=== PATIENT | male | born 1980 | race Caucasian/White ===

== ENCOUNTER 2017-07-16 00:16 | Emergency (ER) | payer OTHER ==
[~2017-07-16] VITALS: Ht 175.2 cm; Wt 99.8 kg
[~2017-07-16 00:16] MED LIST: MOTRIN800 MG PO
[2017-07-16] MEDS ORDERED: TRAZODONE50 MG PO (00:26)
[2017-07-16] MEDS ORDERED: NEURONTIN800 MG PO (00:26)
[2017-07-16] MEDS ORDERED: BUSPAR5 MG PO (00:27)
[2017-07-16] MEDS ORDERED: NYSTATIN CREAM15 GM T (00:58)
[2017-07-16 01:10] LABS: BILIRUBIN NEGATIVE (NEGATIVE); BLOOD NEGATIVE (NEGATIVE); CLARITY CLEAR (CLEAR); COLOR YELLOW (YELLOW); GLUCOSE NEGATIVE (NEGATIVE); KETONE TRACE (NEGATIVE); LEUKO ESTERASE NEGATIVE (NEGATIVE); NITRITE NEGATIVE (NEGATIVE); PH 5.5 (5.0-9.0); SPECIFIC GRAVITY >= 1.030 (1.005-1.030); UROBILINOGEN 0.2 E.U./dl (0.2-1.0)
[2017-07-16 01:21] LABS: MUCOUS TRACE
[2017-07-16 01:22] LABS: WBC 0-2 wbc/hpf (0-5)
== END 2017-07-16 02:27 | disposition home or self-care (01) ==
LOC: ED 00:16
PROVIDERS: Physician Assistant
DX: S60.221A Contusion of right hand, initial encounter (principal); L08.9 Local infection of the skin and subcutaneous tissue, unspecified; F17.200 Nicotine dependence, unspecified, uncomplicated; Z79.899 Other long term (current) drug therapy; W22.8XXA Striking against or struck by other objects, initial encounter; Y93.89 Activity, other specified; Y92.89 Other specified places as the place of occurrence of the external cause; Y99.9 Unspecified external cause status

== ENCOUNTER 2023-03-03 13:40 | Emergency (ER) | payer OTHER ==
[~2023-03-03] VITALS: Ht 172.7 cm; Wt 104.3 kg
[~2023-03-03 13:40] MED LIST changes: +BUSPAR5 MG PO; +NEURONTIN800 MG PO; +NYSTATIN CREAM15 GM T; +TRAZODONE50 MG PO
[2023-03-03 14:40] LABS: BASO # 0.1 10*3/uL (0.0-0.1); BASO % 0.7 % (0.0-1.0); EOS # 0.6 10*3/uL (0.0-0.4); EOS % 6.2 % (1.0-4.0); HEMATOCRIT 44.9 % (42.0-52.0); LYMPH % 33.1 % (27.0-41.0); MEAN CELL VOLUME 89.1 fl (80.0-94.0); MEAN CORPUSCULAR HGB CONC 33.6 g/dl (33.0-37.0); MEAN PLATELET VOLUME 9.5 fl (9.6-12.3); MONO # 0.6 10*3/uL (0.1-1.0); MONO % 6.2 % (3.0-9.0); NEUT # 4.9 10*3/uL (2.3-7.9); NEUT % 53.6 % (47.0-73.0); PLATELET COUNT AUTOMATED 307 10*3/uL (130-400); RED BLOOD COUNT 5.04 10*6/uL (4.50-5.90); RED CELL DISTRI WIDTH 12.7 % (0-14.5); WHITE BLOOD COUNT 9.2 10*3/uL (4.8-10.8)
[2023-03-03 15:10] LABS: ALKALINE PHOSPHATASE 100 U/L (46-116); BUN 12 mg/dl (9-23); CHLORIDE 104 mmol/L (98-107); POTASSIUM 3.8 mmol/L (3.4-5.1); SGPT/ALT 78 U/L (10-49); TOTAL PROTEIN 7.4 gm/dL (6.0-8.0)
[2023-03-03] MEDS ORDERED: PREDNISONE50 MG PO (16:36)
[2023-03-03] MEDS ORDERED: ZITHROMAX250 MG PO (16:36)
== END 2023-03-03 16:46 | disposition home or self-care (01) ==
LOC: ED 13:40
PROVIDERS: Internal Medicine
DX: J45.901 Unspecified asthma with (acute) exacerbation (principal); Z20.822 Contact with and (suspected) exposure to COVID-19

== ENCOUNTER 2023-10-05 02:17 | Emergency (ER) | payer OTHER, MEDICAID ==
[~2023-10-05] VITALS: Ht 172.7 cm; Wt 108.9 kg
[~2023-10-05 02:17] MED LIST changes: +PREDNISONE50 MG PO; +ZITHROMAX250 MG PO
[2023-10-05] MEDS ORDERED: APRESOLINE10 MG PO (02:27)
[2023-10-05 02:29] LABS: BASO # 0.1 10*3/uL (0.0-0.1); BASO % 0.6 % (0.0-1.0); EOS # 0.2 10*3/uL (0.0-0.4); EOS % 1.9 % (1.0-4.0); HEMATOCRIT 41.2 % (42.0-52.0); LYMPH # 2.6 10*3/uL (1.3-4.4); LYMPH % 25.9 % (27.0-41.0); MEAN CORPUSCULAR HGB 30.6 pg (27.0-31.0); MONO # 0.7 10*3/uL (0.1-1.0); MONO % 6.7 % (3.0-9.0); NEUT # 6.5 10*3/uL (2.3-7.9); NEUT % 64.7 % (47.0-73.0); PLATELET COUNT AUTOMATED 292 10*3/uL (130-400); RED BLOOD COUNT 4.58 10*6/uL (4.50-5.90); RED CELL DISTRI WIDTH 12.5 % (0-14.5)
[2023-10-05 02:45] LABS: ALKALINE PHOSPHATASE 112 U/L (46-116); BUN 14 mg/dl (9-23); CHLORIDE 104 mmol/L (98-107); POTASSIUM 3.5 mmol/L (3.4-5.1); SGPT/ALT 20 U/L (5-49); TOTAL PROTEIN 8.1 gm/dL (6.0-8.0)
== END 2023-10-05 03:00 | disposition left against medical advice (07) ==
LOC: ED 02:17
PROVIDERS: Internal Medicine
DX: R07.89 Other chest pain (principal); F14.90 Cocaine use, unspecified, uncomplicated; Z53.29 Procedure and treatment not carried out because of patient's decision for other reasons

== ENCOUNTER 2023-10-09 22:37 | Emergency (ER) | payer OTHER, MEDICAID ==
[~2023-10-09 22:37] MED LIST changes: +APRESOLINE10 MG PO
== END 2023-10-09 23:20 | disposition left against medical advice (07) ==
LOC: ED 22:37
DX: R06.02 Shortness of breath (principal); R05.9 Cough, unspecified; Z53.21 Procedure and treatment not carried out due to patient leaving prior to being seen by health care provider

== ENCOUNTER 2023-10-14 13:34 | Emergency (ER) | payer OTHER, MEDICAID ==
[~2023-10-14] VITALS: Ht 172.7 cm; Wt 108.9 kg
== END 2023-10-14 16:43 | disposition left against medical advice (07) ==
LOC: ED 13:34
DX: R06.02 Shortness of breath (principal); R07.89 Other chest pain; Z53.21 Procedure and treatment not carried out due to patient leaving prior to being seen by health care provider

== ENCOUNTER 2023-10-23 01:56 | Emergency (ER) | payer OTHER, MEDICAID ==
[~2023-10-23] VITALS: Ht 172.7 cm; Wt 99.8 kg
[~2023-10-23 01:56] MED LIST changes: +ASPIRIN ADULT L81 M2 PO; +ATORVASTATIN CA40 M1 PO; +IMDUR SA30 MG PO; +MUCINEX1200 M1 PO; +TAMIFLU 75MG CA75 MG PO
[2023-10-23 02:16] LABS: BASO % 0.4 % (0.0-1.0); EOS # 0.4 10*3/uL (0.0-0.4); EOS % 4.2 % (1.0-4.0); HEMATOCRIT 37.6 % (42.0-52.0); LYMPH # 4.3 10*3/uL (1.3-4.4); LYMPH % 51.6 % (27.0-41.0); MEAN CELL VOLUME 90.8 fl (80.0-94.0); MEAN CORPUSCULAR HGB 30.7 pg (27.0-31.0); MEAN CORPUSCULAR HGB CONC 33.8 g/dl (33.0-37.0); MEAN PLATELET VOLUME 9.5 fl (9.6-12.3); MONO # 0.4 10*3/uL (0.1-1.0); MONO % 4.8 % (3.0-9.0); NEUT # 3.3 10*3/uL (2.3-7.9); NEUT % 38.8 % (47.0-73.0); PLATELET COUNT AUTOMATED 221 10*3/uL (130-400); RED BLOOD COUNT 4.14 10*6/uL (4.50-5.90); WHITE BLOOD COUNT 8.4 10*3/uL (4.8-10.8)
[2023-10-23 02:27] LABS: ACT PARTIAL THROMBO TIME 25.3 SECONDS (20.0-32.1)
[2023-10-23 02:32] LABS: ALKALINE PHOSPHATASE 81 U/L (46-116); BUN 10 mg/dl (9-23); CHLORIDE 110 mmol/L (98-107); POTASSIUM 3.7 mmol/L (3.4-5.1); SGPT/ALT 22 U/L (5-49); TOTAL PROTEIN 6.8 gm/dL (6.0-8.0)
[2023-10-23] MEDS ORDERED: FAMOTIDINE40 MG PO (04:59)
== END 2023-10-23 05:48 | disposition home or self-care (01) ==
LOC: ED 01:56
PROVIDERS: Family Medicine
DX: R07.89 Other chest pain (principal); K21.9 Gastro-esophageal reflux disease without esophagitis; I10 Essential (primary) hypertension; F41.9 Anxiety disorder, unspecified; F32.A Depression, unspecified; F17.210 Nicotine dependence, cigarettes, uncomplicated; Z98.890 Other specified postprocedural states; F14.10 Cocaine abuse, uncomplicated

== ENCOUNTER → 2023-11-11 | Outpatient (CLI) | payer OTHER, MEDICAID ==
[~2023-11-11] MED LIST changes: +FAMOTIDINE40 MG PO
== END | disposition home or self-care (01) ==
LOC: CT 15:49
PROVIDERS: ATTEND Nurse Practitioner Family
DX: R51.9 Headache, unspecified (principal)

== ENCOUNTER 2024-09-09 05:36 | Emergency (ER) | payer OTHER, MEDICAID ==
[~2024-09-09] VITALS: Ht 172.7 cm; Wt 108.9 kg
[2024-09-09] MEDS ORDERED: PREDNISONE20 M1 PO (06:14)
[2024-09-09] MEDS ORDERED: ZITHROMAX250 MG PO (06:14)
[2024-09-09] MEDS ORDERED: methylPREDNISolone sod succ 125 MG VIAL IM ONE (06:15)
== END 2024-09-09 06:17 | disposition home or self-care (01) ==
LOC: ED 05:36
DX: J45.909 Unspecified asthma, uncomplicated (principal); I10 Essential (primary) hypertension; F41.9 Anxiety disorder, unspecified; F32.A Depression, unspecified; F14.10 Cocaine abuse, uncomplicated; F17.210 Nicotine dependence, cigarettes, uncomplicated; Z98.890 Other specified postprocedural states

== ENCOUNTER 2025-06-30 13:08 | Emergency (ER) | payer OTHER, MEDICAID ==
[~2025-06-30] VITALS: Ht 170.1 cm; Wt 99.8 kg
[~2025-06-30 13:08] MED LIST changes: +PREDNISONE20 M1 PO
[2025-06-30] MEDS ORDERED: AMOX-CLAV 875-1 EACH PO (13:31)
[2025-06-30] MEDS ORDERED: IBUPROFEN 800 MG TAB PO ONE (13:35)
[2025-06-30] MEDS ORDERED: Amoxicillin/Clavulanate Pota 875 MG TAB PO ONE (13:35)
== END 2025-06-30 13:39 | disposition home or self-care (01) ==
LOC: ED 13:08
DX: K08.89 Other specified disorders of teeth and supporting structures (principal); I10 Essential (primary) hypertension; F41.9 Anxiety disorder, unspecified; F32.A Depression, unspecified; J45.909 Unspecified asthma, uncomplicated; F17.210 Nicotine dependence, cigarettes, uncomplicated; Z98.890 Other specified postprocedural states